=== PATIENT | male | born 1975 | race Caucasian/White ===

== ENCOUNTER → 2018-03-05 | Outpatient (CLI) | payer OTHER | LOC: M RAD 08:35 | DX: Z87.442 Personal history of urinary calculi (principal) | CPT/HCPCS: 74176 ==

== ENCOUNTER 2018-03-12 11:23 | Emergency (ER) | payer OTHER ==
[2018-03-12] MEDS: KETOROLAC TROMETHAMINE 10 MG TAB PO (11:52)
[2018-03-12] MEDS: METHOCARBAMOL 750 MG TAB PO (11:52)
[2018-03-12] MEDS: NORCO, ANEXSIA 5/325MG TABLET (HYDROcodone/ACETAMINOPHEN) PO (13:04)
== END 2018-03-12 14:02 | disposition home or self-care (01) ==
LOC: M ED 11:23
DX: S29.012A Strain of muscle and tendon of back wall of thorax, initial encounter (principal); X58.XXXA Exposure to other specified factors, initial encounter; Y92.9 Unspecified place or not applicable; Y93.89 Activity, other specified; Y99.9 Unspecified external cause status; I48.91 Unspecified atrial fibrillation; E78.5 Hyperlipidemia, unspecified; Z79.899 Other long term (current) drug therapy
CPT/HCPCS: 99283

== ENCOUNTER → 2019-04-09 | Outpatient (CLI) | payer OTHER ==
[~2019-04-09] MED LIST: HYDR-3715 PO; IBUPOTC; KETO10TAB; METO1TAB32; PROHANCE 279.3MG/ML 15ML VIAL (A9576) As Ordered ONE; PROHANCE 279.3MG/ML 5ML VIAL (A9576) As Ordered ONE; RAMI1CAP21; ROBA500T PO
--- NOTE | 2019-04-09 17:39 | REP ---
MRI PELVIS WITH AND WITHOUT CONTRAST: TECHNIQUE: Multiple sequences obtained in the axial, coronal and sagittal planes prior to and following the intravenous administration of 18 mL ProHance. Pelvis osseous structures demonstrate normal homogeneous bone marrow signal. There is no bone marrow edema or occult fracture. There is no evidence of avascular necrosis. Within the pelvis, no adenopathy or mass is seen. No free fluid or fluid collection is seen. Urinary bladder is mildly distended and grossly unremarkable. No defect or hernia is seen of the anterior abdominal wall at the level of the pelvis. There is no inguinal hernia. There is no evidence of athletic pubalgia. Other superficial soft tissue structures demonstrate no abnormal signal. The perianal region demonstrates no abnormal signal or enhancement. Prostate is not significantly enlarged and appears grossly unremarkable. IMPRESSION: Essentially negative MRI pelvis with and without contrast. Unreviewed
== END ==
LOC: M RAD 14:24
PROVIDERS: ATTEND Physician Assistant
DX: R10.2 Pelvic and perineal pain (principal)
CPT/HCPCS: 72197; A9576

== ENCOUNTER → 2019-04-29 | Outpatient (REF) | payer OTHER ==
[~2019-04-29] MED LIST changes: -PROHANCE 279.3MG/ML 15ML VIAL (A9576) As Ordered ONE; -PROHANCE 279.3MG/ML 5ML VIAL (A9576) As Ordered ONE
[2019-04-29 14:42] LABS: APPEARANCE, URINE HAZY (CLEAR); BACTERIA, URINE AUTO NEGATIVE (NEGATIVE); BILIRUBIN, URINE AUTO NEGATIVE (NEGATIVE); BLOOD, URINE BLOOD NEGATIVE (NEGATIVE); COLOR, URINE YELLOW (YELLOW); GLUCOSE, URINE (UA) AUTO NEGATIVE (NEGATIVE); KETONE, URINE AUTO TRACE mg/dL (NEGATIVE); LEUKOCYTE ESTERASE, URINE AUTO NEGATIVE (NEGATIVE); MUCUS, URINE SMALL (NEGATIVE); NITRITE, URINE AUTO NEGATIVE (NEGATIVE); PROTEIN, URINE AUTO 1+ mg/dL (NEGATIVE); RBC, URINE AUTO 2 /HPF (0-3); SPECIFIC GRAVITY URINE AUTO 1.028 (1.002-1.035); SQUAMOUS EPITHELIAL CELL UR AU 0 /HPF (0-6); UROBILINOGEN, URINE AUTO 0.2 mg/dL (0.0-2.0); WBC, URINE AUTO 0 /HPF (0-3)
[2019-04-29 15:16] LABS: SEMEN APPEARANCE OPAQUE (OPAQUE); SEMEN VISCOSITY LIQUID (LIQUID); SEMEN WBC <=1 M/ml (<=1 M/ml)
== END ==
LOC: M LAB REF 14:15
DX: I86.1 Scrotal varices (principal); N50.0 Atrophy of testis; N50.819 Testicular pain, unspecified

== ENCOUNTER → 2019-06-11 | Outpatient (REF) | payer OTHER | LOC: M LAB REF 18:10 | PROVIDERS: ATTEND Specialist | DX: N50.819 Testicular pain, unspecified (principal) ==

== ENCOUNTER 2019-09-10 15:20 | Emergency (ER) | payer OTHER ==
[~2019-09-10] VITALS: Ht 190.5 cm; Wt 97.7 kg
[2019-09-10] MEDS ORDERED: KETO10TAB PO (17:21)
[2019-09-10 17:22] VITALS: BP 131/88
[2019-09-10] MEDS ORDERED: KETOROLAC TROMETHAMINE 10 MG TAB PO ONE (17:30)
--- NOTE | 2019-09-10 18:01 | REP ---
REASON FOR EXAM: Right-sided pain. COMPARISON: None. The right testicle measures 4.8 x 1.9 x 2.7 cm and the left testicle measures 5.1 x 1.5 x 2.3 cm. The testicular parenchymal echopattern and vascular pattern is within normal limits bilaterally. The right testicular RI is 0.58 and the left is 0.58. There is no evidence of a significant spermatocele or hydrocele on either side. IMPRESSION: Findings are within normal limits. Electronically Signed by Villa Mendoza DO 09/11/2019 11:49 A
== END 2019-09-10 17:30 | disposition home or self-care (01) ==
LOC: M ED 15:20
DX: N50.811 Right testicular pain (principal); R10.2 Pelvic and perineal pain; I48.91 Unspecified atrial fibrillation